=== PATIENT | male | born 1960 | race Caucasian/White ===

== ENCOUNTER 2019-10-30 20:34 | Emergency (ER) | payer SELFPAY ==
--- OUTSIDE RECORDS SUMMARY | 2019-10-30 20:36 | XMS REPORT ---
:1960 [facility] Address [address] [place] [address] [place] [id number] Care Team Providers Name Role Phone Unavailable Unavailable Unavailable Problems This patient has no known problems. Allergies, Adverse Reactions, Alerts This patient has no known allergies or adverse reactions. Medications This patient has no known medications.
[2019-10-30] MEDS ORDERED: cloNIDine HCL 0.1 MG TAB ONE (21:28)
[2019-10-30] MEDS ORDERED: NA CHLORIDE 0.9% 500 ML ONE (21:29)
[2019-10-30] MEDS ORDERED: lisinopriL 20 MG TAB ONE (21:29)
[2019-10-30 21:51] LABS: Absolute Lymphocytes (CBC) 2.7 K/uL (0.7-4.9); Basophils % 0.6 % (0-1.3); Hematocrit 43.4 % (39.6-49.0); Lymphocytes % 26.8 % (15.3-44.8); MPV 7.7 fL (7.6-11.3); Protime INR 1.04; RBC Red Blood Cell Count 4.84 M/uL (4.33-5.43)
[2019-10-30 22:10] LABS: ALT/SGPT 32 U/L (12-78); AST/SGOT 14 U/L (15-37); Albumin 4.1 g/dL (3.4-5.0); Alkaline Phosphatase 81 U/L (45-117); BUN Blood Urea Nitrogen 22 mg/dL (7-18); Bicarbonate 23 mmol/L (21-32); Bilirubin Direct 0.1 mg/dL (0-0.2); Bilirubin Total 0.3 mg/dL (0.2-1.0); Glucose Level 97 mg/dL (74-106); Magnesium 2.4 mg/dL (1.8-2.4); NT PRO-BNP 44 pg/mL (<125); Potassium 3.9 mmol/L (3.5-5.1); Protein, Total 7.7 g/dL (6.4-8.2); Sodium Level 143 mmol/L (136-145); Troponin (Emerg Dept Use Only) < 0.02 ng/mL (0.0-0.045)
--- NOTE | 2019-10-30 22:29 | ER ---
Nurse's Notes [facility] Name: Wing Villegas Age: 59 yrs Sex: Male : 1960 Arrival Date: 10/30/2019 Time: 20:39 Bed 7 Private MD: Diagnosis: Essential (primary) hypertension;Palpitations Presentation: 10/30 20:43 Presenting complaint: Patient states: He was sitting at his desk when suddenly he felt aj1 like he was hot and his heart was racing, he felt dizzy and his legs were numb, so he called EMS, when they got there his blood pressure was 200/110. Patient denies pain at this time. States that his symptoms have all resolved at this time. Transition of care: patient was not received from another setting of care. Onset of symptoms was October 30, 2019. Risk Assessment: Do you want to hurt yourself or someone else? Patient reports no desire to harm self or others. Initial Sepsis Screen: Does the patient meet any 2 criteria? No. Patient's initial sepsis screen is negative. Does the patient have a suspected source of infection? No. Patient's initial sepsis screen is negative. Care prior to arrival: None. 20:43 Method Of Arrival: EMS: [facility] aj1 20:43 Acuity: TOM 3 aj1 Triage Assessment: 20:45 General: Appears in no apparent distress. comfortable, Behavior is calm, cooperative, aj1 appropriate for age. Pain: Denies pain. Neuro: Level of Consciousness is awake, alert, obeys commands, Oriented to person, place, time, situation. Cardiovascular: Patient's skin is warm and dry. Respiratory: Airway is patent Respiratory effort is even, unlabored, Respiratory pattern is regular, symmetrical. Historical: - Allergies: 20:45 No Known Allergies; aj1 - Home Meds: 20:45 None [Active]; aj1 - PMHx: 20:45 "stomach problems"; aj1 - PSHx: 20:45 None; aj1 - Immunization history:: Flu vaccine is not up to date. - Social history:: Smoking status: Patient/guardian denies using tobacco. - Ebola Screening: : Patient denies travel to an Ebola-affected area in the 21 days before illness onset. - Family history:: not pertinent. Screenin:00 Abuse screen: Denies threats or abuse. Nutritional screening: No deficits noted. ea Tuberculosis screening: No symptoms or risk factors identified. Fall Risk None identified. Assessment: 20:55 General: Appears in no apparent distress. Behavior is calm, cooperative, appropriate ea for age. Pain: Denies pain. Neuro: Level of Consciousness is awake, alert, obeys commands, Oriented to person, place, time, situation. Cardiovascular: Patient's skin is warm and dry. Respiratory: Airway is patent Respiratory effort is even, unlabored, Respiratory pattern is regular, symmetrical. Derm: Skin is pink, warm \\T\\ dry. Musculoskeletal: Circulation, motion, and sensation intact. 21:50 Reassessment: Patient and/or family updated on plan of care and expected duration. Pain ea level reassessed. Patient is alert, oriented x 3, equal unlabored respirations, skin warm/dry/pink. 22:30 Reassessment: Patient and/or family updated on plan of care and expected duration. Pain ea level reassessed. Patient is alert, oriented x 3, equal unlabored respirations, skin warm/dry/pink. Patient states feeling better. 23:01 Reassessment: Patient and/or family updated on plan of care and expected duration. Pain ea level reassessed. Patient is alert, oriented x 3, equal unlabored respirations, skin warm/dry/pink. 23:22 Reassessment: Patient and/or family updated on plan of care and expected duration. Pain ea level reassessed. Patient is alert, oriented x 3, equal unlabored respirations, skin warm/dry/pink. Discharge instruction given to patient, verbalized the understanding of instruction. Pt left ED ambulatory accompanied by family, pt tolerating well Patient states feeling better. Vital Signs: 20:45 BP 175 / 110; Pulse 62; Resp 18; Temp 97.5; Pulse Ox 97% on R/A; Weight 82.1 kg (R); aj1 Height 5 ft. 11 in. (180.34 cm) (R); Pain 0/10; 21:30 BP 153 / 98; Pulse 57; Resp 18; Pulse Ox 97% on R/A; ea 22:00 BP 169 / 106; Pulse 57; Resp 18; Pulse Ox 97% on R/A; ea 23:21 BP 158 / 98; Pulse 60; Resp 18; Temp 98.5; Pulse Ox 99% on R/A; ea 20:45 Body Mass Index 25.24 (82.10 kg, 180.34 cm) aj1 ED Course: 20:39 Patient arrived in ED. cf2 20:45 Triage completed. aj1 20:45 Arm band placed on. aj1 20:[address] MD is Attending Physician. nighat 20:54 Swetha Hay RN is Primary Nurse. ea 21:00 Patient has correct armband on for positive identification. Bed in low position. Call ea light in reach. Side rails up X 1. 21:00 Inserted saline lock: 20 gauge in right antecubital area, using aseptic technique. ea 21:36 XRAY Chest (1 view) In Process Unspecified. EDMS 22:40 Vivek Burnett MD is Referral Physician. nighat 23:16 No provider procedures requiring assistance completed. ea 23:22 IV discontinued, intact, bleeding controlled, No redness/swelling at site. Pressure ea dressing applied. Administered Medications: 21:38 Drug: NS 0.9% 500 ml Route: IV; Rate: bolus; Site: right antecubital; ea 22:00 Follow up: Response: No adverse reaction; IV Status: Completed infusion; IV Intake: ea 500ml 21:59 Not Given (Duplicate Order): cloNIDine 0.1 mg PO once nighat 22:03 Drug: Lisinopril 20 mg Route: PO; ea 23:00 Follow up: Response: No adverse reaction ea 22:57 Drug: Aspirin 162 mg Route: PO; ea 23:21 Follow up: Response: No adverse reaction ea 22:57 Drug: Enalaprilat 1.25 mg Route: IV; Rate: per protocol; Site: right antecubital; ea 23:21 Follow up: Response: No adverse reaction; Blood pressure is lowered; IV Status: ea Completed infusion Intake: 22:00 IV: 500ml; Total: 500ml. ea Outcome: 22:27 Discharge ordered by . nighat 23:22 Condition: stable ea 23:22 Discharged to home ambulatory, with friend. ea 23:22 Discharge instructions given to patient, Instructed on discharge instructions, follow up and referral plans. medication usage, Demonstrated understanding of instructions, follow-up care, medications, Prescriptions given X 1. 23:23 Patient left the ED. ea Signatures: Dispatcher [facility] EDOlamide Benavides RN RN aj1 Benja Lane MD MD cha Antunez, Elena, RN RN Dread Bernard 2
--- NOTE | 2019-10-30 22:30 | EDPHYS ---
Physician Documentation [facility] Name: Wing Villegas Age: 59 yrs Sex: Male : 1960 Arrival Date: 10/30/2019 Time: 20:39 Bed 7 Private MD: ED Physician Benja Lane HPI: 10/30 21:05 This 59 yrs old Male presents to ER via EMS with complaints of High Blood nighat Pressure. 21:05 The patient has elevated blood pressure and discovered this at home. Onset: The nighat symptoms/episode began/occurred just prior to arrival. Modifying factors: The symptoms are aggravated by activity, The symptoms are alleviated by remaining still. Associated signs and symptoms: Pertinent positives: dizziness, lightheadedness. Severity of symptoms: At its worst the blood pressure was mild, in the emergency department the blood pressure is improved, mildly. The patient has experienced similar episodes in the past, a few times. Historical: - Allergies: 20:45 No Known Allergies; aj1 - Home Meds: 20:45 None [Active]; aj1 - PMHx: 20:45 "stomach problems"; aj1 - PSHx: 20:45 None; aj1 - Immunization history:: Flu vaccine is not up to date. - Social history:: Smoking status: Patient/guardian denies using tobacco. - Ebola Screening: : Patient denies travel to an Ebola-affected area in the 21 days before illness onset. - Family history:: not pertinent. ROS: 21:05 Constitutional: Negative for fever, chills, and weight loss, Eyes: Negative for injury, nighat pain, redness, and discharge, ENT: Negative for injury, pain, and discharge, Neck: Negative for injury, pain, and swelling, Cardiovascular: Negative for chest pain, palpitations, and edema, Respiratory: Negative for shortness of breath, cough, wheezing, and pleuritic chest pain, Abdomen/GI: Negative for abdominal pain, nausea, vomiting, diarrhea, and constipation, Back: Negative for injury and pain, : Negative for injury, bleeding, discharge, and swelling, MS/Extremity: Negative for injury and deformity, Skin: Negative for injury, rash, and discoloration, Psych: Negative for depression, anxiety, suicide ideation, homicidal ideation, and hallucinations, Allergy/Immunology: Negative for hives, rash, and allergies, Endocrine: Negative for neck swelling, polydipsia, polyuria, polyphagia, and marked weight changes, Hematologic/Lymphatic: Negative for swollen nodes, abnormal bleeding, and unusual bruising. 21:05 Cardiovascular: Positive for palpitations. 21:05 Neuro: Positive for weakness. Exam: 22:26 Constitutional: This is a well developed, well nourished patient who is awake, alert, nighat and in no acute distress. Head/Face: Normocephalic, atraumatic. Eyes: Pupils equal round and reactive to light, extra-ocular motions intact. Lids and lashes normal. Conjunctiva and sclera are non-icteric and not injected. Cornea within normal limits. Periorbital areas with no swelling, redness, or edema. ENT: Nares patent. No nasal discharge, no septal abnormalities noted. Tympanic membranes are normal and external auditory canals are clear. Oropharynx with no redness, swelling, or masses, exudates, or evidence of obstruction, uvula midline. Mucous membranes moist. Neck: Trachea midline, no thyromegaly or masses palpated, and no cervical lymphadenopathy. Supple, full range of motion without nuchal rigidity, or vertebral point tenderness. No Meningismus. Chest/axilla: Normal chest wall appearance and motion. Nontender with no deformity. No lesions are appreciated. Cardiovascular: Regular rate and rhythm with a normal S1 and S2. No gallops, murmurs, or rubs. Normal PMI, no JVD. No pulse deficits. Respiratory: Lungs have equal breath sounds bilaterally, clear to auscultation and percussion. No rales, rhonchi or wheezes noted. No increased work of breathing, no retractions or nasal flaring. Abdomen/GI: Soft, non-tender, with normal bowel sounds. No distension or tympany. No guarding or rebound. No evidence of tenderness throughout. Back: No spinal tenderness. No costovertebral tenderness. Full range of motion. Skin: Warm, dry with normal turgor. Normal color with no rashes, no lesions, and no evidence of cellulitis. MS/ Extremity: Pulses equal, no cyanosis. Neurovascular intact. Full, normal range of motion. Neuro: Awake and alert, GCS 15, oriented to person, place, time, and situation. Cranial nerves II-XII grossly intact. Motor strength 5/5 in all extremities. Sensory grossly intact. Cerebellar exam normal. Normal gait. Psych: Awake, alert, with orientation to person, place and time. Behavior, mood, and affect are within normal limits. 22:26 Musculoskeletal/extremity: DVT Exam: No signs of deep vein thrombosis. no pain, no swelling, no tenderness, negative Homans' sign noted on exam, no appreciated bluish discoloration, no erythema, no increased warmth. Vital Signs: 20:45 BP 175 / 110; Pulse 62; Resp 18; Temp 97.5; Pulse Ox 97% on R/A; Weight 82.1 kg (R); aj1 Height 5 ft. 11 in. (180.34 cm) (R); Pain 0/10; 21:30 BP 153 / 98; Pulse 57; Resp 18; Pulse Ox 97% on R/A; ea 22:00 BP 169 / 106; Pulse 57; Resp 18; Pulse Ox 97% on R/A; ea 23:21 BP 158 / 98; Pulse 60; Resp 18; Temp 98.5; Pulse Ox 99% on R/A; ea 20:45 Body Mass Index 25.24 (82.10 kg, 180.34 cm) aj1 MDM: 20:53 Patient medically screened. [facility] 21:12 Data reviewed: vital signs, nurses notes, lab test result(s), EKG, radiologic studies, nighat plain films. 10/30 21:05 Order name: Basic Metabolic Panel; Complete Time: 22:25 [facility] 10/30 21:05 Order name: CBC with Diff; Complete Time: 21:58 [facility] 10/30 21:05 Order name: LFT's; Complete Time: 22:25 [facility] 10/30 21:05 Order name: Magnesium; Complete Time: 22:25 [facility] 12 21:05 Order name: NT PRO-BNP; Complete Time: 22:25 [facility] 12 21:05 Order name: PT-INR; Complete Time: 21:58 [facility] 10/30 21:05 Order name: Troponin (emerg Dept Use Only); Complete Time: 22:25 [facility] 12 21:05 Order name: XRAY Chest (1 view) [facility] 10/30 21:05 Order name: TSH; Complete Time: 22:25 [facility] 10/30 21:05 Order name: EKG; Complete Time: 21:06 [facility] 10/30 21:05 Order name: Cardiac monitoring; Complete Time: 21:08 [facility] 10/30 21:05 Order name: EKG - Nurse/Tech; Complete Time: 21:08 [facility] 10/30 21:05 Order name: IV Saline Lock; Complete Time: 22:16 [facility] 10/30 21:05 Order name: Labs collected and sent; Complete Time: 22:16 [facility] 10/30 21:05 Order name: O2 Per Protocol; Complete Time: 21:08 [facility] 10/30 21:05 Order name: O2 Sat Monitoring; Complete Time: 21:08 [facility] Administered Medications: 21:38 Drug: NS 0.9% 500 ml Route: IV; Rate: bolus; Site: right antecubital; ea 22:00 Follow up: Response: No adverse reaction; IV Status: Completed infusion; IV Intake: ea 500ml 21:59 Not Given (Duplicate Order): cloNIDine 0.1 mg PO once [facility] 22:03 Drug: Lisinopril 20 mg Route: PO; ea 23:00 Follow up: Response: No adverse reaction ea 22:57 Drug: Aspirin 162 mg Route: PO; ea 23:21 Follow up: Response: No adverse reaction ea 22:57 Drug: Enalaprilat 1.25 mg Route: IV; Rate: per protocol; Site: right antecubital; ea 23:21 Follow up: Response: No adverse reaction; Blood pressure is lowered; IV Status: ea Completed infusion Disposition: 10/30/19 22:27 Discharged to Home. Impression: Essential (primary) hypertension, Palpitations. - Condition is Stable. - Discharge Instructions: Hypertension, Palpitations, Hypertension, Bvuk-uf-Rayv, How to Take Your Blood Pressure, Qanh-wx-Gblg, Aspirin and Your Heart, Palpitations, Ngxv-iu-Kpgj, Managing Your Hypertension. - Prescriptions for Lisinopril 20 mg Oral Tablet - take 1 tablet by ORAL route once daily; 20 tablet. - Medication Reconciliation Form, Thank You Letter, Antibiotic Education, Prescription Opioid Use form. - Follow up: Private Physician; When: 2 - 3 days; Reason: Recheck today's complaints, Continuance of care, Re-evaluation by your physician. Follow up: Vivek Burnett MD; When: 2 - 3 days; Reason: Recheck today's complaints, Re-evaluation by your physician. - Problem is new. - Symptoms have improved. Signatures: Dispatcher [employer] EDMS Barrington, Olamide, RN RN ajBenja Bryant MD MD cha Antunez, Elena, RN RN ea Corrections: (The following items were deleted from the chart) 22:41 22:27 10/30/2019 22:27 Discharged to Home. Impression: Essential (primary) nighat hypertension; Palpitations. Condition is Stable. Discharge Instructions: Hypertension, Palpitations, Hypertension, Obmw-ha-Mllc, How to Take Your Blood Pressure, Ztoc-kk-Weza, Aspirin and Your Heart, Palpitations, Csot-wq-Zevo, Managing Your Hypertension. Prescriptions for Lisinopril 10 mg Oral Tablet - take 1 tablet by ORAL route once daily; 20 tablet. and Forms are Medication Reconciliation Form, Thank You Letter, Antibiotic Education, Prescription Opioid Use. Follow up: Private Physician; When: 2 - 3 days; Reason: Recheck today's complaints, Continuance of care, Re-evaluation by your physician. Problem is new. Symptoms have improved. [facility] 23:23 22:41 10/30/2019 22:27 Discharged to Home. Impression: Essential (primary) ea hypertension; Palpitations. Condition is Stable. Discharge Instructions: Hypertension, Palpitations, Hypertension, Qjmi-mm-Lfjk, How to Take Your Blood Pressure, Tfrv-us-Imic, Aspirin and Your Heart, Palpitations, Zqes-ps-Dtkt, Managing Your Hypertension. Prescriptions for Lisinopril 10 mg Oral Tablet - take 1 tablet by ORAL route once daily; 20 tablet. and Forms are Medication Reconciliation Form, Thank You Letter, Antibiotic Education, Prescription Opioid Use. Follow up: Private Physician; When: 2 - 3 days; Reason: Recheck today's complaints, Continuance of care, Re-evaluation by your physician. Follow up: Vivek Burnett; When: 2 - 3 days; Reason: Recheck today's complaints, Re-evaluation by your physician. Problem is new. Symptoms have improved. nighat
[2019-10-30] MEDS ORDERED: ENALAPRILAT 1.25 MG/ML VIAL IV ONE (22:49)
[2019-10-30] MEDS ORDERED: ASPIRIN 81 MG CHEWABLE TABLET ONE (22:49)
[2019-10-30 23:39] VITALS: BP 158/98; TEMP 98.5; O2SAT 99
--- NOTE | 2019-10-31 06:20 | EKG ---
Test Date: 2019-10-30 Test Time: 21:01:43 Home Appliance Installer: LIA MEASUREMENT RESULTS: Intervals: Rate: 59 AR: 160 QRSD: 102 QT: 418 QTc: 413 [place]: P: 41 AR: 160 QRS: -16 T: 16 INTERPRETIVE STATEMENTS: Sinus bradycardia Otherwise normal ECG Compared to ECG 07/05/2017 14:33:22 No significant changes Electronically Signed On 10-31-19 06:19:24 FINISHING MACHINE TENDER by Kishore Andre
--- NOTE | 2019-10-31 07:49 | RAD REPORT ---
EXAM DESCRIPTION: Jack Single View10/30/2019 9:37 pm CLINICAL HISTORY: Palpitations COMPARISON: 2016 FINDINGS: The lungs appear clear of acute infiltrate. The heart is normal size IMPRESSION: No acute abnormalities displayed
== END 2019-10-30 23:23 | disposition home or self-care (01) ==
LOC: ER 20:34
DX: I10 Essential (primary) hypertension (principal); R00.2 Palpitations
CPT/HCPCS: 36415; 71045; 80048; 80076; 83735; 83880; 84443; 84484; 85025; 85610; 93005; 96365; 99284; J7040

== ENCOUNTER 2023-03-24 20:35 | Emergency (ER) | payer OTHER ==
--- OUTSIDE RECORDS SUMMARY | 2023-03-24 20:37 | XMS REPORT | Continuity of Care Document ---
:1960 Author Organization [facility] t Address [address] [facility] [address] [place] [id number] Care Team Providers Name Role Phone Unavailable Unavailable Unavailable Problems This patient has no known problems. Allergies, Adverse Reactions, Alerts This patient has no known allergies or adverse reactions. Medications This patient has no known medications. Procedures This patient has no known procedures. Results This patient has no known results.
--- NOTE | 2023-03-24 22:56 | EDPHYS ---
Physician Documentation [facility] Name: Wing Villegas Age: 62 yrs Sex: Male : 1960 Arrival Date: 03/24/2023 Time: 20:35 Bed 22 Private MD: ED Physician Benja Lane MDM: 03/24 21:11 Patient medically screened. [facility] 03/24 21:13 Order name: EKG; Complete Time: 21:13 nighat 03/24 21:13 Order name: EKG - Nurse/Tech [facility] 03/24 21:13 Order name: IV Saline Lock nighat Administered Medications: No medications were administered Disposition Summary: 03/24/23 22:55 Eloped Disposition: before being seen by provider nighat Problem: new nighat Symptoms: have improved nighat Reason: unknown nighat Condition: Undetermined nighat Diagnosis - Essential (primary) hypertension nighat Followup: nighat - With: Private Physician - When: Upon discharge from the Emergency Department - Reason: Recheck today's complaints, Continuance of care, Re-evaluation by your physician Signatures: Dispatcher [employer] Benja Wright MD MD nighat Corrections: (The following items were deleted from the chart) 22:16 21:14 Chest Single View+RAD.RAD.BRZ ordered. ELSIE ZIMMERMAN
--- NOTE | 2023-03-24 22:56 | ER ---
Nurse's Notes [facility] Name: Wing Villegas Age: 62 yrs Sex: Male : 1960 Arrival Date: 03/24/2023 Time: 20:35 Bed 22 Private MD: Diagnosis: Essential (primary) hypertension Assessment: 03/24 21:00 Reassessment: Called for pt, no answer. Pt not in lobby. mb9 ED Course: 20:38 Patient arrived in ED. mr 21:[address] MD is Attending Physician. nighat Administered Medications: No medications were administered Outcome: 23:40 Patient left the ED. as6 Signatures: Benja Lane MD MD cha Rivera, Mary mr Slawson, Ashby RN RN as6 Brielle David RN RN mb9
== END 2023-03-24 23:40 | disposition left against medical advice (07) ==
LOC: ER 20:35
DX: Z02.9 Encounter for administrative examinations, unspecified (principal)

== ENCOUNTER 2024-05-21 22:08 | Emergency (ER) | payer OTHER ==
--- OUTSIDE RECORDS SUMMARY | 2024-05-21 22:11 | XMS REPORT | Continuity of Care Document ---
Author Name Unknown Address [address] [place] [address] [facility] Address [address] [place] [address] [address] [place] [address] Care Team Providers Care Battalion Fire Chief Name Role Phone Unavailable Unavailable Unavailable
--- NOTE | 2024-05-21 22:34 | EDPHYS ---
Physician Documentation [facility] Name: Wing Villegas Age: 63 yrs Sex: Male : 1960 Arrival Date: 05/21/2024 Time: 22:08 Bed 3 Private MD: ED Physician Julian Trammell HPI: 05/21 22:36 This 63 yrs old Male presents to ER via Wheelchair with complaints of ec2 Toothache. 22:36 Patient arrives today for left lower dental pain. Patient reports he is having pain in ec2 the area as well as swelling. No issues with phonation, no issues with swallowing, has been taking ibuprofen with minimal alleviation in symptoms. Reports that he has been taking some antibiotic however it sounds like he is taken some mfov-jfa-htwolbs medication.. Historical: - Allergies: 22:20 No Known Allergies; bm8 - Home Meds: 22:20 lisinopril 10 mg Oral tablet 1 tab daily [Active]; bm8 - PMHx: 22:20 Hypertensive disorder; bm8 - PSHx: 22:20 neck; bm8 - Immunization history:: Adult Immunizations up to date. - Infectious Disease History:: Denies. - Social history:: Smoking status: Patient denies any tobacco usage or history of. ROS: 22:36 Constitutional: as per hpi ec2 Exam: 22:36 Constitutional: GEN: NAD Head: atraumatic Eyes: EOMI Ears: External ears are normal. ec2 Mouth: Left lower teeth with erythema at the gumline, induration noted, no submandibular swelling, no trismus, no issues with drooling. CV: regular rate LUNGS: no respiratory distress ABD: non-distended SKIN: no evidence of rashes MSK: no evidence of trauma NEURO: moves all extremities equally Vital Signs: 22:19 BP 152 / 100; Pulse 61; Resp 18; Temp 98.6; Pulse Ox 98% ; Weight 81.65 kg; Height 5 bm8 ft. 11 in. ; Pain 10/10; 23:00 BP 130 / 95; Pulse 61; Resp 17 S; Pulse Ox 98% on R/A; ha1 22:19 Body Mass Index 25.10 (81.65 kg, 180.34 cm) bm8 22:19 Pain Scale: Adult bm8 MDM: 22:21 Patient medically screened. ec2 22:37 Data reviewed: vital signs. ED course: Patient arrives today for evaluation of left ec2 lower dental pain. Examination remarkable for dental findings as above. Presentation consistent with dental abscess. Will discharge home with antibiotics. Return precautions given.. Administered Medications: 22:50 Drug: Acetaminophen-Codeine PO (300 mg-30 mg) 1 tablet PO once; RASS on ADMIN: Combtv4, ha1 Very Agttd3, Agttd2, Rstlss1, AlertClm0, Drwsy-1, Lt Sdtn-2, Mod Sdtn-3, Dp Sdtn-4, UnArsble-5 Route: PO; 23:07 Follow up: Response: No adverse reaction; Pain is decreased; RASS: Alert and Calm (0) ha1 22:50 Drug: Clindamycin PO 150 mg PO once Route: PO; ha1 23:07 Follow up: Response: No adverse reaction ha1 22:57 Drug: Ketorolac IM 30 mg IM once Route: IM; Site: right deltoid; ha1 23:07 Follow up: Response: No adverse reaction ha1 22:58 Not Given (Other Intervention Used): [id number] mg IM once lg3 Disposition Summary: 05/21/24 22:34 Discharge Ordered Notes: Location: Home ec2 Condition: Stable ec2 Diagnosis - Dental Abscess ec2 Followup: ec2 - With: Private Physician - When: - Reason: Recheck today's complaints Discharge Instructions: - Discharge Summary Sheet ec2 - Dental Abscess, Rjpb-zg-Nhel ec2 Forms: - Medication Reconciliation Form ec2 - Antibiotic Education ec2 - Prescription Opioid Use ec2 - Patient Portal Instructions ec2 - Leadership Thank You Letter ec2 Prescriptions: - acetaminophen-codeine 300-15 mg Oral tablet - take 1 tablet ORAL route every 8 hours; 10 tablet; Refills: 0, Product ec2 Selection Permitted - Clindamycin HCl 150 mg Oral capsule - take 3 capsule ORAL route every 8 hours for 7 days; 63 capsule; Refills: 0, ec2 Product Selection Permitted Signatures: Shaniqua Rubio RN RN ha1 Julian Trammell MD MD ec2 Ignacio Viveros RN RN bm8 Delma Jo RN lg3 Corrections: (The following items were deleted from the chart) 22:21 22:20 PMHx: "stomach problems"; bm8 bm8
--- NOTE | 2024-05-21 22:34 | ER ---
Nurse's Notes [facility] Name: Wing Villegas Age: 63 yrs Sex: Male : 1960 Arrival Date: 05/21/2024 Time: 22:08 Bed 3 Private MD: Diagnosis: Dental Abscess Presentation: 05/21 22:19 Chief complaint: Patient states: left sided jaw pain from abscess since . has bm8 been taking unk antibiotic. Coronavirus screen: At this time, the client does not indicate any symptoms associated with coronavirus-19. Ebola Screen: Patient negative for fever greater than or equal to 101.5 degrees Fahrenheit, and additional compatible Ebola Virus Disease symptoms Patient denies exposure to infectious person. Patient denies travel to an Ebola-affected area in the 21 days before illness onset. No symptoms or risks identified at this time. Initial Sepsis Screen: Does the patient meet any 2 criteria? No. Patient's initial sepsis screen is negative. Does the patient have a suspected source of infection? No. Patient's initial sepsis screen is negative. Risk Assessment: Do you want to hurt yourself or someone else? Patient reports no desire to harm self or others. Onset of symptoms was May 17, 2024. 22:19 Method Of Arrival: Wheelchair bm8 22:19 Acuity: TOM 3 bm8 Triage Assessment: 22:20 General: Appears in no apparent distress. uncomfortable, Behavior is calm, cooperative, bm8 appropriate for age. Pain: Complains of pain in left jaw and neck. EENT: Oral mucosa is moist. Poor dentition noted. Reports pain in left jaw. Historical: - Allergies: 22:20 No Known Allergies; bm8 - Home Meds: 22:20 lisinopril 10 mg Oral tablet 1 tab daily [Active]; bm8 - PMHx: 22:20 Hypertensive disorder; bm8 - PSHx: 22:20 neck; bm8 - Immunization history:: Adult Immunizations up to date. - Infectious Disease History:: Denies. - Social history:: Smoking status: Patient denies any tobacco usage or history of. Screenin:22 [facility] ED Fall Risk Assessment (Adult) History of falling in the last 3 months, ha1 including since admission No falls in past 3 months (0 pts) Confusion or Disorientation No (0 pts) Intoxicated or Sedated No (0 pts) Impaired Gait No (0 pts) Mobility Assist Device Used No (0 pt) Altered Elimination No (0 pt) Score/Fall Risk Level 0 - 2 = Low Risk Oriented to surroundings, Maintained a safe environment, Educated pt \\T\\ family on fall prevention, incl call for assistance when getting out of bed, Hourly rounding (assess needs \\T\\ fall precautionary measures) done. Abuse screen: Denies threats or abuse. Denies injuries from another. Nutritional screening: No deficits noted. Tuberculosis screening: No symptoms or risk factors identified. Assessment: 22:17 General: Appears uncomfortable, Behavior is cooperative. Pain: Complains of pain in ha1 left jaw Pain does not radiate. Pain currently is 8 out of 10 on a pain scale. Quality of pain is described as sharp, stabbing, throbbing. Neuro: Level of Consciousness is awake, alert, obeys commands, Oriented to person, place, time, situation. Cardiovascular: Capillary refill < 3 seconds Patient's skin is warm and dry. Respiratory: Airway is patent Respiratory effort is even, unlabored, Respiratory pattern is regular, symmetrical. EENT: Reports tooth ache on the left jaw . Vital Signs: 22:19 BP 152 / 100; Pulse 61; Resp 18; Temp 98.6; Pulse Ox 98% ; Weight 81.65 kg; Height 5 bm8 ft. 11 in. ; Pain 10/10; 23:00 BP 130 / 95; Pulse 61; Resp 17 S; Pulse Ox 98% on R/A; ha1 22:19 Body Mass Index 25.10 (81.65 kg, 180.34 cm) bm8 22:19 Pain Scale: Adult bm8 ED Course: 22:17 Patient arrived in ED. tm6 22:17 Patient has correct armband on for positive identification. Bed in low position. Call ha1 light in reach. Side rails up X 1. 22:18 Julian Trammell MD is Attending Physician. ec2 22:20 Triage completed. bm8 22:20 Arm band placed on right wrist. bm8 23:00 No provider procedures requiring assistance completed. ha1 23:00 Patient did not have IV access during this emergency room visit. ha1 23:07 Provided Education on: follow ups . 1 Administered Medications: 22:50 Drug: Acetaminophen-Codeine PO (300 mg-30 mg) 1 tablet PO once; RASS on ADMIN: Combtv4, ha1 Very Agttd3, Agttd2, Rstlss1, AlertClm0, Drwsy-1, Lt Sdtn-2, Mod Sdtn-3, Dp Sdtn-4, UnArsble-5 Route: PO; 23:07 Follow up: Response: No adverse reaction; Pain is decreased; RASS: Alert and Calm (0) ha1 22:50 Drug: Clindamycin PO 150 mg PO once Route: PO; ha1 23:07 Follow up: Response: No adverse reaction ha1 22:57 Drug: Ketorolac IM 30 mg IM once Route: IM; Site: right deltoid; ha1 23:07 Follow up: Response: No adverse reaction ha1 22:58 Not Given (Other Intervention Used): [id number] mg IM once lg3 Medication: 23:00 VIS not applicable for this client. 1 Outcome: 22:34 Discharge ordered by . ec2 23:07 Patient left the ED. ha1 23:07 Condition: stable ha1 23:07 Discharged to home ambulatory, ha1 23:07 Discharge instructions given to patient, Instructed on discharge instructions, follow up and referral plans. medication usage, Demonstrated understanding of instructions, follow-up care, medications, Prescriptions given X 2, Signatures: Shaniqua Rubio RN RN 1 Julian Trammell MD MD 2 Shena Devi RN RN tm6 Ignacio Viveros RN RN bm8 Delma Jo RN lg3 Corrections: (The following items were deleted from the chart) 22:21 22:20 PMHx: "stomach problems"; celena [place] 23:11 23:10 Discharged to home ambulatory, [place] [id number] 23:11 23:10 Condition: stable 1 ha1 23:11 23:10 Discharge instructions given to patient, Instructed on discharge instructions, 1 follow up and referral plans. medication usage, Demonstrated understanding of instructions, follow-up care, medications, Prescriptions given X 2, ha1
[2024-05-21] MEDS ORDERED: CODEINE 30MG/APAP 300MG TAB ONE (22:55)
[2024-05-21] MEDS ORDERED: KETOROLAC 30 MG/ML INJ ONE (23:01)
[2024-05-22 05:58] VITALS: BP 152/100; TEMP 98.6; O2SAT 98
== END 2024-05-21 23:07 | disposition home or self-care (01) ==
LOC: ER 22:08
DX: K04.7 Periapical abscess without sinus (principal); I10 Essential (primary) hypertension
CPT/HCPCS: 96372; 99284